=== PATIENT | male | born 1955 | race Caucasian/White ===

== ENCOUNTER → 2024-03-30 10:05 | Outpatient (REF) | payer MEDICARE, SELFPAY ==
[2024-03-30 11:17] LABS: % Basophils 0.9 % (0-2); % Eosinophils 3.9 % (0-6); % Immature Granulocytes 0.9 % (0-0.5); % Lymphocytes 19.7 % (20.5-51.1); % Neutrophils 66.6 % (42.2-75.2); Absolute Basophils 0.1 10^3/uL (0-0.2); Absolute Eosinophils 0.3 10^3/uL (0-0.7); Absolute Immature Granulocytes 0.1 10^3/uL (0-0.05); Absolute Lymphocytes 1.6 10^3/uL (1.2-3.4); Absolute Monocytes 0.7 10^3/uL (0.1-0.6); Absolute Neutrophils 5.5 10^3/uL (1.4-6.5); Hematocrit 30.3 % (39.0-52.0); Hemoglobin 10.6 g/dL (13.0-18.0); Mean Corpuscular Hgb 33.9 pg (27.0-31.0); Mean Corpuscular Volume 96.8 fL (80.0-94.0); Mean Platelet Volume 10.7 fL (7.4-10.4); Nucleated Red Blood Cells % 0 % (-); Platelet Count 190 10^3/uL (130-400); Red Blood Cell Count 3.13 10^6/uL (4.70-6.10); Red Cell Dist. Width 13.5 % (11.5-14.5); White Blood Cell Count 8.2 10^3/uL (4.8-10.8)
[2024-03-30 12:20] LABS: Blood Urea Nitrogen 22 mg/dl (9-20); Carbon Dioxide 23 mmol/L (22-30); Chloride 104 mmol/L (98-107); Glucose 107 mg/dl (70-99); Potassium 4.3 mmol/L (3.5-5.1); Sodium 139 mmol/L (135-145); eGFR > 60.00
== END ==
LOC: RCS 10:05
PROVIDERS: ATTENDING PHYSICIAN Orthopaedic Surgery Hand Surgery; FAMILY PHYSICIAN Registered Nurse
DX: Z01.818 Encounter for other preprocedural examination (principal)
CPT/HCPCS: 36415; 80048; 85025; 93005

== ENCOUNTER 2024-04-04 06:23 | Day surgery (SDC) | payer MEDICARE, SELFPAY ==
--- NOTE | 2024-04-02 13:56 | PTCARENOTE ---
Abn ECG, Dr. Hodge notified, no further actions requested.
[2024-04-04] VITALS (11 sets, daily range): BP systolic 134–193; BP diastolic 73–101; BMI 31.6
[2024-04-04] MEDS: TYLENOL 1000 MG PO (12:53)
[2024-04-04] MEDS: NORMOSOL-R 1000 IV (12:53)
[2024-04-04] MEDS: CELEBREX 200 MG PO (12:53)
--- NOTE | 2024-04-04 19:41 | W.PN.ANES ---
Anesthesia Note
- -
04/04/24 19:41
After completion of preoperative nerve block when disposing of needle, a member of the patient's health care team inadvetantly stuck himself. He went to the Emergency department to have blood drawn. Post operatively, after patient was given
sufficient time to recover from anesthesia, I made him aware of the incident. I assured him that since it occurred after the block was done, he was in no way exposed to potential pathogens. However, as part of our policy we would like to test him
for blood transmissible disease, specifically HIV and Hepatitis. He did give consent to me to draw blood for Hepatitis and HIV testing.
Prabhjot Rodrigez
--- NOTE | 2024-04-04 19:56 | PTCARENOTE ---
[address] Rodrigez obtained verbal consent from patient to obtain a source stick draw post exposure to staff in Pre-op holding. Patient verbally consented and blood drawn as ordered by Dr Honeycutt and sent to lab.
[2024-04-04 20:11] LABS: Hepatitis B Surface Antigen Negative (Negative)
[2024-04-04 20:21] LABS: HIV Combo Negative (Negative)
[2024-04-04 20:29] LABS: Hepatitis C Antibody Negative (Negative)
== END 2024-04-04 20:00 | disposition home or self-care (01) ==
LOC: SDS 06:23
PROVIDERS: ATTENDING PHYSICIAN Orthopaedic Surgery Hand Surgery
DX: S42.342A Displaced spiral fracture of shaft of humerus, left arm, initial encounter for closed fracture (principal); X58.XXXA Exposure to other specified factors, initial encounter; M79.602 Pain in left arm
CPT/HCPCS: 24515; C1713; 73060; 76000; 86803; 86850; 86900; 86901; 87340; 87389